=== PATIENT | female | born 1990 ===

== ENCOUNTER 2023-06-22 20:38 | Observation (INO) | payer OTHER ==
[2023-06-22] MEDS ORDERED: Sodium Chloride 0.9% 10 ML Syringe FLUSH PRN (20:51)
[2023-06-22] MEDS ORDERED: Nalbuphine 10 MG/0.5 ML Syringe IVPUSH PRN (20:51)
[2023-06-22] MEDS ORDERED: Ondansetron 4 MG/2 ML SDV IVPUSH PRN (20:51)
[2023-06-22] MEDS ORDERED: Oxytocin/Lactated Ringers 10 UNIT/1,000 ML BAG IV SCH (21:00)
[2023-06-22] MEDS ORDERED: Lactated Ringers 1,000 ML IV SCH (21:00)
[2023-06-22] MEDS ORDERED: Sodium Chloride 0.9% 10 ML Syringe FLUSH SCH (21:00)
[2023-06-22 21:13] LABS: HEMATOCRIT 36.4 % (34.1-44.9); HEMOGLOBIN 12.6 gm/dl (11.2-15.7); MEAN CORPUSCULAR HEMOGLOBIN 30.9 pg (25.6-32.2); MEAN CORPUSCULAR HGB CONC 34.6 g/dl (32.2-35.5); MEAN CORPUSCULAR VOLUME 89.2 fl (79.4-94.8); MEAN PLATELET VOLUME 11.1 fl (9.4-12.3); PLATELET COUNT,PLT 250 K/mm3 (182-369); RED BLOOD CELL COUNT 4.08 M/mm3 (3.98-5.22); WHITE BLOOD CELL COUNT,WBC 16.17 K/mm3 (3.98-10.04)
[2023-06-22] MEDS ORDERED: Misoprostol 200 MCG Tab PO STA (22:54)
[2023-06-22] MEDS ORDERED: Oxytocin 10 Units/1 ML SDV IM ONE (22:54)
[2023-06-22] MEDS ORDERED: Methylergonovine 0.2 MG/ML SDV IM ONE (23:03)
[2023-06-22] MEDS: Lidocaine 1% 50 ML MDV INJECT ONE (23:19)
[2023-06-22] MEDS ORDERED: Docusate Sodium 100 MG Cap PO PRN (23:57)
[2023-06-22] MEDS ORDERED: Witch Hazel Medicated Pads 40/Jar TOP PRN (23:57)
[2023-06-22] MEDS ORDERED: Benzocaine/Menthol 20%-0.5% Spray 78 GM Cannister TOP PRN (23:57)
[2023-06-22] MEDS ORDERED: Acetaminophen 325 MG Tab PO PRN (23:57)
[2023-06-22] MEDS ORDERED: Ibuprofen 600 MG Tab PO PRN (23:57)
[2023-06-23] MEDS: Lidocaine 1% 50 ML MDV INJECT ONE (02:37)
[2023-06-23 13:17] LABS: HEMATOCRIT 29.5 % (34.1-44.9); MEAN CORPUSCULAR HEMOGLOBIN 30.6 pg (25.6-32.2); MEAN CORPUSCULAR HGB CONC 33.9 g/dl (32.2-35.5); MEAN CORPUSCULAR VOLUME 90.2 fl (79.4-94.8); MEAN PLATELET VOLUME 10.9 fl (9.4-12.3); PLATELET COUNT,PLT 217 K/mm3 (182-369); RED BLOOD CELL COUNT 3.27 M/mm3 (3.98-5.22); WHITE BLOOD CELL COUNT,WBC 17.93 K/mm3 (3.98-10.04)
== END 2023-06-24 12:10 | disposition home or self-care (01) ==
LOC: JD.OBCHECK 20:38 → JD.OB 20:51
PROVIDERS: ADMIT Obstetrics & Gynecology; ATTEND Obstetrics & Gynecology
DX: O80 Encounter for full-term uncomplicated delivery (principal); O26.893 Other specified pregnancy related conditions, third trimester; Z3A.39 39 weeks gestation of pregnancy; Z87.891 Personal history of nicotine dependence; Z79.899 Other long term (current) drug therapy
CPT/HCPCS: 36415; 59025; 59409; 85027; 85461; 86592; 86850; 86900; 86901; 90384; A9270; J2210; J2590; J2001; J2790

== ENCOUNTER 2025-01-26 21:25 | Inpatient (IN) | payer OTHER ==
[2025-01-26] MEDS ORDERED: Sodium Chloride 0.9% 10 ML Syringe FLUSH PRN (22:00)
[2025-01-26] MEDS ORDERED: Lidocaine 1% 50 ML MDV INJECT PRN (22:00)
[2025-01-26] MEDS ORDERED: Ondansetron 4 MG/2 ML SDV IVPUSH PRN (22:00)
[2025-01-26] MEDS ORDERED: Lactated Ringers 1,000 ML IV SCH (22:00)
[2025-01-26] MEDS ORDERED: Nalbuphine 10 MG/1 ML Vial IVPUSH PRN (22:00)
[2025-01-26] MEDS: Oxytocin/0.9 % Sodium Chloride 30 UNIT/500 ML BAG IV SCH (22:10)
[2025-01-26] MEDS ORDERED: Sennosides 8.6 MG Tab PO PRN (22:28)
[2025-01-26] MEDS ORDERED: Acetaminophen 325 MG Tab PO PRN (22:28)
[2025-01-26] MEDS: Benzocaine/Menthol 20%-0.5% Spray 78 GM Cannister TOP PRN (23:24)
[2025-01-26] MEDS: Witch Hazel Medicated Pads 40/Jar TOP PRN (23:25)
[2025-01-27 00:06] LABS: BASOPHILS PERCENT AUTO 0.1 % (0.0-1.0); EOSINOPHILS PERCENT AUTO 0.1 % (0.0-6.0); HEMATOCRIT 37.9 % (37.0-47.0); HEMOGLOBIN 13.1 gm/dl (12.0-16.0); IMMATURE GRAN ABSOLUTE AUTO 0.11 K/mm3 (0.00-0.05); IMMATURE GRAN PERCENT AUTO 0.7 % (0.0-0.4); LYMPHOCYTES ABSOLUTE AUTO 1.4 K/mm3 (1.0-4.8); LYMPHOCYTES PERCENT AUTO 9.1 % (24.0-44.0); MEAN CORPUSCULAR HEMOGLOBIN 30.5 pg (28.0-32.0); MEAN CORPUSCULAR HGB CONC 34.6 g/dl (32.0-36.0); MEAN CORPUSCULAR VOLUME 88.1 fl (83.0-99.0); MEAN PLATELET VOLUME 10.9 fl (9.4-12.3); MONOCYTES ABSOLUTE AUTO 0.4 K/mm3 (0.0-0.8); MONOCYTES PERCENT AUTO 2.7 % (0.0-8.0); NEUTROPHILS ABSOLUTE AUTO 13.9 K/mm3 (1.8-7.7); NEUTROPHILS PERCENT AUTO 87.3 % (41.0-71.0); PLATELET COUNT,PLT 212 K/mm3 (150-400); WHITE BLOOD CELL COUNT,WBC 15.88 K/mm3 (3.9-11.3)
[2025-01-27] MEDS: Ibuprofen 800 MG Tab PO SCH ×2 (02:23→18:35)
[2025-01-28] MEDS: Sodium Chloride 0.9% 10 ML Syringe FLUSH SCH (00:54)
== END 2025-01-28 08:25 | disposition home or self-care (01) | DRG 807 ==
LOC: JD.OBCHECK 21:25 → JD.OB 21:32 → OBSVTOIN 22:03 → JD.OB 22:04
PROVIDERS: ADMIT Obstetrics & Gynecology; ATTEND Obstetrics & Gynecology
PROC: 10907ZC Drainage of Amniotic Fluid, Therapeutic from Products of Conception, Via Natural or Artificial Opening (ICD-10-PCS; principal; 2025-01-26)
PROC: 30233S1 Transfusion of Nonautologous Globulin into Peripheral Vein, Percutaneous Approach (ICD-10-PCS; principal; 2025-01-26)
PROC: 10E0XZZ Delivery of Products of Conception, External Approach (ICD-10-PCS; principal; 2025-01-26)
DX: O24.420 Gestational diabetes mellitus in childbirth, diet controlled (principal); Z37.0 Single live birth; O26.893 Other specified pregnancy related conditions, third trimester; Z67.91 Unspecified blood type, Rh negative; Z3A.38 38 weeks gestation of pregnancy; Z79.899 Other long term (current) drug therapy; Z98.890 Other specified postprocedural states
CPT/HCPCS: 36415; 36430; 59025; 59409; 85025; 85461; 86592; 86850; 86870; 86900; 86901; A9270-GY; J2791; J7999